=== PATIENT | female | born 1995 | race Caucasian/White ===

== ENCOUNTER 2016-08-25 22:37 | Emergency (ER) | payer OTHER | END 2016-08-25 23:05 | disposition home or self-care (01) | LOC: ER 22:37 | DX: R30.0 Dysuria (principal); Z87.440 Personal history of urinary (tract) infections; F11.10 Opioid abuse, uncomplicated; F17.210 Nicotine dependence, cigarettes, uncomplicated | CPT/HCPCS: 99070; 99282; 99283 ==